=== PATIENT | female | born 2000 | race Caucasian/White ===

== ENCOUNTER 2023-05-08 04:44 | Inpatient (IN) | payer BC ==
[2023-05-08] MEDS ORDERED: Carboprost Tromethamine 250 MCG/1 mL Vial IM PRN (05:26)
[2023-05-08] MEDS ORDERED: Nalbuphine 10 MG/0.5 ML Syringe IVPUSH PRN (05:26)
[2023-05-08] MEDS ORDERED: Tranexamic Acid IN NACL,ISO-OS 1,000 MG in Premix Bag 1 BAG IV PRN (05:26)
[2023-05-08] MEDS ORDERED: Sodium Chloride 0.9% 2.5 ML Syringe FLUSH PRN (05:26)
[2023-05-08] MEDS ORDERED: Misoprostol 200 MCG Tab PO PRN (05:26)
[2023-05-08] MEDS ORDERED: Sodium Chloride 0.9% 10 ML Syringe FLUSH PRN (05:26)
[2023-05-08] MEDS ORDERED: Lidocaine 1% 50 ML MDV INJECT PRN (05:26)
[2023-05-08] MEDS ORDERED: Methylergonovine 0.2 MG/1 ML Amp IM PRN (05:26)
[2023-05-08] MEDS ORDERED: Sodium Chloride 0.9% 20 ML SDV IV PRN (05:26)
[2023-05-08] MEDS ORDERED: Water For Irrigation,Sterile 1,000 ML Container IRR PRN (05:26)
[2023-05-08] MEDS ORDERED: Lactated Ringers 1,000 ML IV SCH (05:30)
[2023-05-08] MEDS ORDERED: Ondansetron 4 MG/2 ML SDV ONE (05:55)
[2023-05-08] MEDS: Ondansetron 4 MG/2 ML SDV IVPUSH PRN (05:55)
[2023-05-08 06:17] LABS: HEMATOCRIT 41.6 % (37.0-47.0); HEMOGLOBIN 14.6 g/dL (12.0-16.0); MEAN CORPUSCULAR HEMOGLOBIN 30.2 pg (28.0-32.0); MEAN CORPUSCULAR HGB CONC 35.1 g/dL (32.0-36.0); MEAN CORPUSCULAR VOLUME 86.1 fL (83.0-99.0); MEAN PLATELET VOLUME 11.6 fL (9.4-12.3); PLATELET COUNT,PLT 282 K/uL (150-400); RED BLOOD CELL COUNT 4.83 M/uL (4.10-5.30); WHITE BLOOD CELL COUNT,WBC 10.76 K/uL (3.9-11.3)
[2023-05-08] MEDS: Oxytocin/0.9 % Sodium Chloride 30 UNIT/500 ML BAG IV SCH (10:48)
[2023-05-08] MEDS: Benzocaine/Menthol 20%-0.5% Spray 78 GM Cannister ONE (11:04)
[2023-05-08] MEDS: Witch Hazel Medicated Pads 40/Jar TOP ONE (11:04)
[2023-05-08] MEDS ORDERED: Benzocaine/Menthol 20%-0.5% Spray 78 GM Cannister TOP PRN (13:10)
[2023-05-08] MEDS ORDERED: Ibuprofen 800 MG Tab PO PRN (13:10)
[2023-05-08] MEDS ORDERED: Lanolin 100% Cream 7 GM Tube TOP PRN (13:10)
[2023-05-08] MEDS ORDERED: oxyCODONE 5 MG Tab PO PRN (13:10)
[2023-05-08] MEDS ORDERED: Witch Hazel Medicated Pads 40/Jar TOP PRN (13:10)
[2023-05-08] MEDS ORDERED: Docusate Sodium 100 MG Cap PO PRN (13:10)
[2023-05-08] MEDS: Acetaminophen 500 MG Tab ONE (13:35)
[2023-05-09] MEDS: Acetaminophen 500 MG Tab PO PRN (05:43)
[2023-05-09 06:04] LABS: HEMATOCRIT 41.1 % (37.0-47.0); HEMOGLOBIN 14.3 g/dL (12.0-16.0)
== END 2023-05-09 13:58 | disposition home or self-care (01) | DRG 560 ==
LOC: MW.OBCHECK 04:44 → MW.OB 04:45 → MW.OBCHECK 05:26 → OBSVTOIN 10:53 → MW.OB 10:53
PROVIDERS: ADMIT Obstetrics & Gynecology; ATTEND Obstetrics & Gynecology
PROC: 10E0XZZ Delivery of Products of Conception, External Approach (ICD-10-PCS; principal; 2023-05-08)
PROC: 0KQM0ZZ Repair Perineum Muscle, Open Approach (ICD-10-PCS; 2023-05-08)
DX: O69.81X0 Labor and delivery complicated by cord around neck, without compression, not applicable or unspecified (principal); Z37.0 Single live birth; O70.1 Second degree perineal laceration during delivery; Z3A.39 39 weeks gestation of pregnancy
CPT/HCPCS: 36415; 59025; 59409; 84112; 85014; 85018; 85027; 86592; 86850; 86900; 86901; A9270-GY; J2405; J2590